=== PATIENT | female | born 1945 | race Caucasian/White ===

== ENCOUNTER → 2017-02-17 | Outpatient (CLI) | payer MEDICARE ==
[~2017-02-17] MED LIST: ENALAPRIL MALEA20 MG PO; HYDROCHLOROTHIA25 MG PO; METFORMIN500 MG PO; METOPROLOL50 MG PO; NIACIN500 MG PO; PRAVASTATIN SOD40 MG PO; VICODIN 5/500 505 MG PO; Vicodin 5/500 505 MG PO
== END | disposition home or self-care (01) ==
LOC: RAD 10:52
DX: M17.0 Bilateral primary osteoarthritis of knee (principal); M25.561 Pain in right knee

== ENCOUNTER 2017-03-16 09:30 | Inpatient (IN) | payer MEDICARE ==
[2017-03-16] VITALS (7 sets, daily range): BP systolic 136–170; BP diastolic 77–90
[~2017-03-16] VITALS: Ht 172.7 cm; Wt 83.2 kg
[2017-03-16 09:56] LABS: BASO % 0.1 % (0.0-1.0); EOS # 0.1 10*3/uL (0.0-0.4); EOS % 0.8 % (1.0-4.0); HEMATOCRIT 43.6 % (37.0-47.0); HEMOGLOBIN 14.7 g/dl (12.0-16.0); LYMPH # 1.5 10*3/uL (1.3-4.4); LYMPH % 16.6 % (27.0-41.0); MEAN CELL VOLUME 88.4 fl (81.0-99.0); MEAN CORPUSCULAR HGB 29.8 pg (27.0-31.0); MEAN CORPUSCULAR HGB CONC 33.7 g/dl (33.0-37.0); MEAN PLATELET VOLUME 10.6 fl (9.6-12.3); MONO # 0.7 10*3/uL (0.1-1.0); MONO % 8.1 % (3.0-9.0); NEUT # 6.7 10*3/uL (2.3-7.9); NEUT % 74.2 % (47.0-73.0); PLATELET COUNT AUTOMATED 282 10*3/uL (130-400); RED BLOOD COUNT 4.93 10*6/uL (4.10-5.10)
[2017-03-16 10:12] LABS: PROTHROMBIN TIME 10.4 SECONDS (9.0-12.4)
[2017-03-16 10:12] LABS: ALBUMIN 4.1 gm/dl (3.1-4.5); ALKALINE PHOSPHATASE 83 U/L (45-117); BILIRUBIN, TOTAL 0.9 mg/dl (0.2-1.0); BUN 25 mg/dl (7-24); CARBON DIOXIDE 28 mmol/L (21-32); CHLORIDE 101 mmol/L (98-107); CPK 136 U/L (26-192); EST GLOM FILT AFRICAN AMERICAN > 60 ml/min; GLUCOSE 174 mg/dL (65-99); MAGNESIUM 1.3 mg/dL (1.5-2.1); POTASSIUM 3.3 mmol/L (3.5-5.1); SGOT/AST 22 IU/L (3-35); SGPT/ALT 24 U/L (12-78); SODIUM 142 mmol/L (136-145); TOTAL PROTEIN 7.5 gm/dL (6.4-8.2)
[2017-03-16 10:14] LABS: CKMB 4.1 ng/ml (0.5-3.6); TROPONIN I 0.026 ng/ml (<0.045)
[2017-03-16] MEDS ORDERED: METFORMIN HCL1000 MG PO (16:41)
[2017-03-16] MEDS ORDERED: CYCLOBENZAPRINE10 MG PO (16:41)
[2017-03-16] MEDS ORDERED: LISINOPRIL20 MG PO (16:41)
[2017-03-16] MEDS ORDERED: SIMVASTATIN20 MG PO (16:42)
[2017-03-16 20:41] LABS: BILIRUBIN NEGATIVE (NEGATIVE); BLOOD NEGATIVE (NEGATIVE); CLARITY SL CLOUDY (CLEAR); COLOR YELLOW (YELLOW); GLUCOSE NEGATIVE (NEGATIVE); KETONE NEGATIVE (NEGATIVE); LEUKO ESTERASE 1+ (NEGATIVE); NITRITE NEGATIVE (NEGATIVE); PROTEIN NEGATIVE (NEGATIVE); UROBILINOGEN 0.2 E.U./dl (0.2-1.0)
[2017-03-16 20:55] LABS: BACTERIA 3+; EPITHELIAL CELLS 20-25; URINE REFLEX COMMENT YES (NO)
[2017-03-17] VITALS: BP 150/80
[2017-03-17 06:49] LABS: BASO % 0.1 % (0.0-1.0); EOS % 0.2 % (1.0-4.0); HEMATOCRIT 41.2 % (37.0-47.0); HEMOGLOBIN 13.8 g/dl (12.0-16.0); LYMPH # 0.8 10*3/uL (1.3-4.4); MEAN CELL VOLUME 87.7 fl (81.0-99.0); MEAN CORPUSCULAR HGB 29.4 pg (27.0-31.0); MEAN CORPUSCULAR HGB CONC 33.5 g/dl (33.0-37.0); MONO # 0.8 10*3/uL (0.1-1.0); MONO % 8.6 % (3.0-9.0); NEUT # 7.3 10*3/uL (2.3-7.9); NEUT % 81.8 % (47.0-73.0); PLATELET COUNT AUTOMATED 230 10*3/uL (130-400); RED CELL DISTRI WIDTH 12.7 % (0-14.5)
[2017-03-17 07:27] LABS: BUN 17 mg/dl (7-24); CARBON DIOXIDE 27 mmol/L (21-32); CHLORIDE 103 mmol/L (98-107); EST GLOM FILT AFRICAN AMERICAN > 60 ml/min; GLUCOSE 186 mg/dL (65-99); MAGNESIUM 1.5 mg/dL (1.5-2.1); POTASSIUM 3.5 mmol/L (3.5-5.1); SODIUM 139 mmol/L (136-145)
[2017-03-17 07:37] LABS: FREE T4 1.42 ng/dl (0.76-1.46); THYROID STIM HORMONE (HS) 0.636 uIU/ml (0.358-4.75)
[2017-03-17 08:00] VITALS: BP 164/75
[2017-03-17 12:00] VITALS: BP 106/84
[2017-03-17 16:00] VITALS: BP 145/81
[2017-03-17 20:00] VITALS: BP 144/78
[2017-03-18 00:14] VITALS: BP 134/66
[2017-03-18 08:00] VITALS: BP 180/80
[2017-03-18 12:00] VITALS: BP 124/73
[2017-03-18 16:00] VITALS: BP 178/80
[2017-03-18 20:00] VITALS: BP 149/74
[2017-03-19 00:06] VITALS: BP 152/76
[2017-03-19 08:00] VITALS: BP 138/82
[2017-03-19 12:00] VITALS: BP 131/66
== END 2017-03-19 15:30 | disposition other institution (70) | DRG 689 ==
LOC: ED 09:30 → EDHOLD 11:05 → 5E 11:05
PROVIDERS: Internal Medicine Hospice and Palliative Medicine; Registered Nurse
DX: N39.0 Urinary tract infection, site not specified (principal); N17.0 Acute kidney failure with tubular necrosis; E83.42 Hypomagnesemia; E11.65 Type 2 diabetes mellitus with hyperglycemia; I31.3 Pericardial effusion (noninflammatory); R55 Syncope and collapse; E87.6 Hypokalemia; I25.10 Atherosclerotic heart disease of native coronary artery without angina pectoris; E78.00 Pure hypercholesterolemia, unspecified; I10 Essential (primary) hypertension; M17.0 Bilateral primary osteoarthritis of knee; I25.2 Old myocardial infarction; Z87.891 Personal history of nicotine dependence; Z82.49 Family history of ischemic heart disease and other diseases of the circulatory system; Z79.84 Long term (current) use of oral hypoglycemic drugs; Z79.899 Other long term (current) drug therapy; W19.XXXA Unspecified fall, initial encounter

== ENCOUNTER 2017-05-29 19:06 | Emergency (ER) | payer MEDICARE ==
[~2017-05-29] VITALS: Ht 170.1 cm; Wt 90.7 kg
[~2017-05-29 19:06] MED LIST changes: +CYCLOBENZAPRINE10 MG PO; +LISINOPRIL20 MG PO; +METFORMIN HCL1000 MG PO; +SIMVASTATIN20 MG PO
[2017-05-29 19:17] VITALS: BP 155/84
[2017-05-29] MEDS ORDERED: ASPIRIN ADULT L81 M1 PO (19:18)
[2017-05-29] MEDS ORDERED: CALCIUM + D3 E1 EACH PO (19:19)
[2017-05-29] MEDS ORDERED: VITAMIN D50000 I3 PO (19:19)
[2017-05-29] MEDS ORDERED: VIBRAMYCIN100 MG PO (19:35)
== END 2017-05-29 19:45 | disposition home or self-care (01) ==
LOC: ED 19:06
DX: S40.812A Abrasion of left upper arm, initial encounter (principal); Z87.891 Personal history of nicotine dependence; Z95.5 Presence of coronary angioplasty implant and graft; Z79.899 Other long term (current) drug therapy; Z29.12 Encounter for prophylactic antivenin; W55.03XA Scratched by cat, initial encounter; Y93.89 Activity, other specified; Y92.9 Unspecified place or not applicable; Y99.9 Unspecified external cause status

== ENCOUNTER → 2017-09-08 | Outpatient (CLI) | payer MEDICARE ==
[~2017-09-08] MED LIST changes: +ASPIRIN ADULT L81 M1 PO; +CALCIUM + D3 E1 EACH PO; +VIBRAMYCIN100 MG PO; +VITAMIN D50000 I3 PO
[2017-09-08 12:30] LABS: BASO % 0.3 % (0.0-1.0); EOS # 0.1 10*3/uL (0.0-0.4); EOS % 0.8 % (1.0-4.0); HEMOGLOBIN 14.7 g/dl (12.0-16.0); LYMPH # 2.1 10*3/uL (1.3-4.4); LYMPH % 26.5 % (27.0-41.0); MEAN CELL VOLUME 89.2 fl (81.0-99.0); MEAN CORPUSCULAR HGB 29.8 pg (27.0-31.0); MEAN CORPUSCULAR HGB CONC 33.4 g/dl (33.0-37.0); MEAN PLATELET VOLUME 10.5 fl (9.6-12.3); MONO # 0.4 10*3/uL (0.1-1.0); MONO % 5.6 % (3.0-9.0); NEUT # 5.2 10*3/uL (2.3-7.9); NEUT % 66.4 % (47.0-73.0); PLATELET COUNT AUTOMATED 247 10*3/uL (130-400); RED BLOOD COUNT 4.93 10*6/uL (4.10-5.10); RED CELL DISTRI WIDTH 12.9 % (0-14.5); WHITE BLOOD COUNT 7.8 10*3/uL (4.8-10.8)
[2017-09-08 13:05] LABS: ALBUMIN 3.9 gm/dl (3.1-4.5); ALKALINE PHOSPHATASE 74 U/L (45-117); BUN 16 mg/dl (7-24); CHLORIDE 105 mmol/L (98-107); CREATININE 0.94 mg/dL (0.55-1.02); SGOT/AST 14 IU/L (3-35); SGPT/ALT 20 U/L (12-78); SODIUM 140 mmol/L (136-145); TOTAL PROTEIN 7.4 gm/dL (6.4-8.2)
[2017-09-08 15:55] LABS: BILIRUBIN 1+ (NEGATIVE); BLOOD NEGATIVE (NEGATIVE); CLARITY CLEAR (CLEAR); COLOR YELLOW (YELLOW); GLUCOSE NEGATIVE (NEGATIVE); KETONE TRACE (NEGATIVE); LEUKO ESTERASE 2+ (NEGATIVE); NITRITE NEGATIVE (NEGATIVE); PH 5.5 (5.0-9.0); SPECIFIC GRAVITY >= 1.030 (1.005-1.030); UROBILINOGEN 0.2 E.U./dl (0.2-1.0)
[2017-09-08 16:28] LABS: BACTERIA 1+; FINE GRANULAR CAST 0-2; RBC 0-2 rbc/hpf (0-2)
== END | disposition home or self-care (01) ==
LOC: LAB 11:53
PROVIDERS: Orthopaedic Surgery
DX: Z01.818 Encounter for other preprocedural examination (principal); M19.90 Unspecified osteoarthritis, unspecified site; E11.9 Type 2 diabetes mellitus without complications; I10 Essential (primary) hypertension; R35.0 Frequency of micturition; R53.83 Other fatigue; J44.9 Chronic obstructive pulmonary disease, unspecified; I51.7 Cardiomegaly; R94.31 Abnormal electrocardiogram [ECG] [EKG]; M79.609 Pain in unspecified limb; Z87.891 Personal history of nicotine dependence

== ENCOUNTER → 2018-01-31 | Outpatient (CLI) | payer MEDICARE ==
[2018-02-01 09:05] LABS: IMMUNOGLOBULIN G, QNT 786 mg/dL (700-1600); IMMUNOGLOBULIN M, QNT 55 mg/dL (26-217)
[2018-02-01 16:05] LABS: IMMUNOFIXATION RESULT, SERUM Comment: (.)
== END | disposition home or self-care (01) ==
LOC: LAB 10:19
PROVIDERS: Psychiatry & Neurology Neurology
DX: R41.3 Other amnesia (principal)

== ENCOUNTER 2018-09-27 12:39 | Emergency (ER) | payer MEDICARE ==
[~2018-09-27] VITALS: Ht 170.1 cm; Wt 86.2 kg
[2018-09-27 12:40] VITALS: BP 130/76
== END 2018-09-27 14:52 | disposition home or self-care (01) ==
LOC: ED 12:39
DX: M79.671 Pain in right foot (principal); I25.10 Atherosclerotic heart disease of native coronary artery without angina pectoris; I10 Essential (primary) hypertension; I25.2 Old myocardial infarction; E78.00 Pure hypercholesterolemia, unspecified; E11.9 Type 2 diabetes mellitus without complications; Z79.84 Long term (current) use of oral hypoglycemic drugs; Z79.899 Other long term (current) drug therapy; Z79.82 Long term (current) use of aspirin; Z87.891 Personal history of nicotine dependence; W22.8XXA Striking against or struck by other objects, initial encounter; Y93.89 Activity, other specified; Y92.89 Other specified places as the place of occurrence of the external cause; Y99.8 Other external cause status

== ENCOUNTER 2019-06-30 15:15 | Inpatient (IN) | payer OTHER, MEDICAID ==
[~2019-06-30] VITALS: Ht 172.7 cm; Wt 77.1 kg
--- NOTE | ~2019-06-30 | EKG ---
[place], [place] ELECTROCARDIOGRAM REPORT NAME: DILCIA ARREGUIN UNIT #: [id number] ROOM: 526 DOCTOR: FOX DRAFT REPORT BIRTHDATE: [birth year] [facility] Test Date: 2019-06-30 Test Time: 15:32:23 Pat Name: DILCIA ARREGUIN Department: Room: 526 Gender: F Surveyor: : 1945 Requested By: KRISTIN WALLS Order Number: [id number] Reading MD: Za Chin MD Measurements Intervals [place] Rate: 79 P: 39 TX: 135 QRS: 30 QRSD: 99 T: -5 QT: 413 QTc: 474 Interpretive Statements Sinus rhythm Probable left atrial enlargement Left ventricular hypertrophy Probable inferior infarct, age indeterminate Electronically Signed On 07-02-2019 6:49:45 PDT by Za Chin MD CM:EKGRPT:ELECTROCARDIOGRAM REPORT [id number] KRISTIN MANNING DRAFT REPORT KRISTIN WALLS DO
[2019-06-30 15:16] VITALS: BP 146/83
[2019-06-30 15:58] LABS: BASO % 0.3 % (0.0-1.0); EOS % 0.4 % (1.0-4.0); HEMATOCRIT 46.3 % (37.0-47.0); HEMOGLOBIN 15.1 g/dl (12.0-16.0); LYMPH # 1.9 10*3/uL (1.3-4.4); LYMPH % 25.9 % (27.0-41.0); MEAN CELL VOLUME 91.9 fl (81.0-99.0); MEAN CORPUSCULAR HGB CONC 32.6 g/dl (33.0-37.0); MEAN PLATELET VOLUME 10.8 fl (9.6-12.3); MONO # 0.5 10*3/uL (0.1-1.0); MONO % 7.3 % (3.0-9.0); NEUT # 4.8 10*3/uL (2.3-7.9); NEUT % 65.8 % (47.0-73.0); PLATELET COUNT AUTOMATED 233 10*3/uL (130-400); RED BLOOD COUNT 5.04 10*6/uL (4.10-5.10); WHITE BLOOD COUNT 7.3 10*3/uL (4.8-10.8)
[2019-06-30 16:15] LABS: ALBUMIN 3.9 gm/dl (3.1-4.5); ALKALINE PHOSPHATASE 66 U/L (45-117); BUN 21 mg/dl (7-24); CHLORIDE 106 mmol/L (98-107); CREATININE 1.09 mg/dL (0.55-1.02); LIPASE 90 U/L (73-393); POTASSIUM 3.7 mmol/L (3.5-5.1); SGOT/AST 14 IU/L (3-35); SGPT/ALT 17 U/L (12-78); SODIUM 138 mmol/L (136-145); TOTAL PROTEIN 7.4 gm/dL (6.4-8.2)
[2019-06-30 16:17] LABS: TROPONIN I < 0.015 ng/ml (<0.045)
[2019-06-30 16:19] LABS: ACT PARTIAL THROMBO TIME 24.5 SECONDS (20.0-32.1); INTERNATIONAL NORM RATIO 0.9 (2.0-3.5)
[2019-06-30 16:38] VITALS: BP 141/72
[2019-06-30 17:00] LABS: BILIRUBIN 2+ (NEGATIVE); BLOOD NEGATIVE (NEGATIVE); CLARITY SL CLOUDY (CLEAR); COLOR YELLOW (YELLOW); GLUCOSE NEGATIVE (NEGATIVE); KETONE NEGATIVE (NEGATIVE); LEUKO ESTERASE TRACE (NEGATIVE); NITRITE NEGATIVE (NEGATIVE); PH 5.5 (5.0-9.0); SPECIFIC GRAVITY >= 1.030 (1.005-1.030); UROBILINOGEN 0.2 E.U./dl (0.2-1.0)
[2019-06-30 17:10] LABS: BACTERIA 2+; EPITHELIAL CELLS 16-20; MUCOUS 4+
[2019-06-30 18:25] VITALS: BP 138/71
[2019-06-30 18:37] VITALS: BP 166/86
--- NOTE | 2019-06-30 18:37 | NUR ---
Time: 1836 A 74 year old FEMALE admitted to 5E under services of JEANINE GALARZA DO. Pt. arrived via stretcher from ER. Chief complaint: CONFUSION. SABINO CABRERA
[2019-06-30 20:00] VITALS: BP 166/86
--- NOTE | 2019-06-30 23:50 | NUR ---
PT OBSERVED RESTLESS AND REPORTS DIFFICULTY FALLIING ASLEEP. RESTORIL GIVEN.SEE EMAR
[2019-07-01] VITALS: BP 178/124
--- NOTE | 2019-07-01 01:00 | NUR ---
RESTORIL INEFFECTIVE. PT OBSERVED TO SLEEP IN BREIF INTERVALS.
[2019-07-01 01:33] VITALS: BP 146/72
--- NOTE | 2019-07-01 04:10 | NUR ---
24 HR chart check completed.
[2019-07-01 06:15] LABS: BASO % 0.3 % (0.0-1.0); EOS # 0.1 10*3/uL (0.0-0.4); EOS % 0.9 % (1.0-4.0); HEMATOCRIT 42.1 % (37.0-47.0); HEMOGLOBIN 13.6 g/dl (12.0-16.0); LYMPH # 2.2 10*3/uL (1.3-4.4); LYMPH % 33.9 % (27.0-41.0); MEAN CELL VOLUME 91.9 fl (81.0-99.0); MEAN CORPUSCULAR HGB 29.7 pg (27.0-31.0); MEAN CORPUSCULAR HGB CONC 32.3 g/dl (33.0-37.0); MEAN PLATELET VOLUME 10.6 fl (9.6-12.3); MONO # 0.5 10*3/uL (0.1-1.0); MONO % 8.3 % (3.0-9.0); NEUT # 3.6 10*3/uL (2.3-7.9); NEUT % 56.4 % (47.0-73.0); PLATELET COUNT AUTOMATED 194 10*3/uL (130-400); RED BLOOD COUNT 4.58 10*6/uL (4.10-5.10); RED CELL DISTRI WIDTH 12.7 % (0-14.5); WHITE BLOOD COUNT 6.4 10*3/uL (4.8-10.8)
[2019-07-01 06:29] LABS: BUN 23 mg/dl (7-24); CHLORIDE 108 mmol/L (98-107); CREATININE 0.91 mg/dL (0.55-1.02); POTASSIUM 3.4 mmol/L (3.5-5.1); SODIUM 140 mmol/L (136-145)
[2019-07-01 12:00] VITALS: BP 163/79
--- NOTE | 2019-07-01 14:00 | NUR ---
DR. BATISTA AWARE THAT PATIENTS HOME MEDICATIONS WERE RECONCILED FROM PATIENT CLAIM HISTORY AND NEEDED ORDERED.
[2019-07-01 16:00] VITALS: BP 155/73
[2019-07-01 20:00] VITALS: BP 162/84
--- NOTE | 2019-07-01 23:44 | NUR ---
NOTIFIED OF BP 188/74. SAID SHE WOULD ORDER SOMETHING.
[2019-07-02] VITALS: BP 188/74
--- NOTE | 2019-07-02 01:06 | NUR ---
BP 162/82 FOLLOWING APRESOLINE.
[2019-07-02 01:07] VITALS: BP 162/82
[2019-07-02 06:36] LABS: BASO % 0.3 % (0.0-1.0); EOS # 0.1 10*3/uL (0.0-0.4); EOS % 0.8 % (1.0-4.0); HEMATOCRIT 42.5 % (37.0-47.0); HEMOGLOBIN 14.1 g/dl (12.0-16.0); LYMPH # 1.8 10*3/uL (1.3-4.4); LYMPH % 29.5 % (27.0-41.0); MEAN CELL VOLUME 91.6 fl (81.0-99.0); MEAN CORPUSCULAR HGB 30.4 pg (27.0-31.0); MEAN CORPUSCULAR HGB CONC 33.2 g/dl (33.0-37.0); MEAN PLATELET VOLUME 11.1 fl (9.6-12.3); MONO # 0.5 10*3/uL (0.1-1.0); NEUT # 3.7 10*3/uL (2.3-7.9); NEUT % 61.2 % (47.0-73.0); PLATELET COUNT AUTOMATED 196 10*3/uL (130-400); RED BLOOD COUNT 4.64 10*6/uL (4.10-5.10); RED CELL DISTRI WIDTH 13.1 % (0-14.5); WHITE BLOOD COUNT 6.1 10*3/uL (4.8-10.8)
[2019-07-02 06:42] LABS: BUN 18 mg/dl (7-24); CHLORIDE 113 mmol/L (98-107); CREATININE 0.85 mg/dL (0.55-1.02); POTASSIUM 3.6 mmol/L (3.5-5.1); SODIUM 145 mmol/L (136-145)
[2019-07-02 08:00] VITALS: BP 171/73
--- NOTE | 2019-07-02 09:59 | NUR ---
PT COMPLAIN OF LEFT WRIST PAIN, ICE BAG APPLIED, TYLENOL GIVEN
--- NOTE | 2019-07-02 10:52 | NUR ---
TYLENOL EFFECTIVE FOR PAIN
[2019-07-02 12:00] VITALS: BP 175/84
[2019-07-02] MEDS ORDERED: CIPRO500 MG PO (12:53)
--- NOTE | 2019-07-02 13:45 | NUR ---
Discharge instructions reviewed with patient/family. Patient receptive and verbalizes understanding. Follow-up care understood. Written instructions given to patient/family. 2 ivs removed, dressing applied. pt understands new rx to clam picker at pharmacy and has no questions on discharge. JESSICA ROSE
== END 2019-07-02 13:45 | disposition home or self-care (01) | DRG 689 ==
LOC: ED 15:15 → EDHOLD 18:01 → 5E 18:12
PROVIDERS: Emergency Medicine; Internal Medicine; ADMIT Internal Medicine
DX: N39.0 Urinary tract infection, site not specified (principal); G93.41 Metabolic encephalopathy; I10 Essential (primary) hypertension; G93.89 Other specified disorders of brain; I25.10 Atherosclerotic heart disease of native coronary artery without angina pectoris; E11.65 Type 2 diabetes mellitus with hyperglycemia; M19.032 Primary osteoarthritis, left wrist; I25.2 Old myocardial infarction; Z87.891 Personal history of nicotine dependence; Z82.49 Family history of ischemic heart disease and other diseases of the circulatory system; Z79.899 Other long term (current) drug therapy

== ENCOUNTER → 2021-01-03 | Outpatient (CLI) | payer OTHER, MEDICAID ==
[~2021-01-03] MED LIST changes: +CIPRO500 MG PO
[2021-01-03 09:59] LABS: BASO % 0.3 % (0.0-1.0); EOS # 0.1 10*3/uL (0.0-0.4); EOS % 0.9 % (1.0-4.0); HEMATOCRIT 45.7 % (37.0-47.0); LYMPH # 1.3 10*3/uL (1.3-4.4); LYMPH % 18.7 % (27.0-41.0); MEAN CELL VOLUME 94.2 fl (81.0-99.0); MEAN CORPUSCULAR HGB 29.5 pg (27.0-31.0); MEAN CORPUSCULAR HGB CONC 31.3 g/dl (33.0-37.0); MEAN PLATELET VOLUME 10.3 fl (9.6-12.3); MONO # 0.4 10*3/uL (0.1-1.0); MONO % 6.4 % (3.0-9.0); NEUT # 5.1 10*3/uL (2.3-7.9); NEUT % 73.4 % (47.0-73.0); PLATELET COUNT AUTOMATED 235 10*3/uL (130-400); RED BLOOD COUNT 4.85 10*6/uL (4.10-5.10); RED CELL DISTRI WIDTH 13.2 % (0-14.5); WHITE BLOOD COUNT 6.9 10*3/uL (4.8-10.8)
[2021-01-03 10:15] LABS: BILIRUBIN Negative (Negative); BLOOD Negative (Negative); CLARITY Cloudy (Clear); COLOR Yellow (Yellow); GLUCOSE Negative (Negative); KETONE Negative (Negative); LEUKO ESTERASE 2+ (Negative); NITRITE Positive (Negative); SPECIFIC GRAVITY 1.015 (1.001-1.030); UROBILINOGEN 0.2 E.U./dl (0.0-1.0)
[2021-01-03 10:25] LABS: BACTERIA 3+; WBC TNTC wbc/hpf (0-5)
[2021-01-03 10:36] LABS: ALBUMIN 3.4 gm/dl (3.1-4.5); CREATININE 1.12 mg/dL (0.55-1.02); POTASSIUM 4.3 mmol/L (3.5-5.1)
[2021-01-03 10:37] LABS: TOTAL PROTEIN 6.8 gm/dL (6.4-8.2)
== END | disposition home or self-care (01) ==
LOC: MRI 12-30 08:00
PROVIDERS: ATTEND Family Medicine
DX: E53.8 Deficiency of other specified B group vitamins (principal); R30.0 Dysuria; R41.89 Other symptoms and signs involving cognitive functions and awareness

== ENCOUNTER 2021-07-19 19:59 | Emergency (ER) | payer OTHER, MEDICAID ==
[~2021-07-19] VITALS: Ht 175.2 cm; Wt 82.6 kg
[2021-07-19 23:03] LABS: BASO % 0.4 % (0.0-1.0); EOS % 0.4 % (1.0-4.0); HEMATOCRIT 43.4 % (37.0-47.0); LYMPH % 19.5 % (27.0-41.0); MEAN CELL VOLUME 89.5 fl (81.0-99.0); MEAN CORPUSCULAR HGB 29.5 pg (27.0-31.0); MEAN CORPUSCULAR HGB CONC 32.9 g/dl (33.0-37.0); MEAN PLATELET VOLUME 10.6 fl (9.6-12.3); MONO # 0.8 10*3/uL (0.1-1.0); MONO % 7.6 % (3.0-9.0); NEUT # 7.2 10*3/uL (2.3-7.9); NEUT % 71.7 % (47.0-73.0); PLATELET COUNT AUTOMATED 247 10*3/uL (130-400); RED BLOOD COUNT 4.85 10*6/uL (4.10-5.10); RED CELL DISTRI WIDTH 13.2 % (0-14.5); WHITE BLOOD COUNT 10.1 10*3/uL (4.8-10.8)
[2021-07-19 23:22] LABS: BUN 18 mg/dl (7-24); CHLORIDE 105 mmol/L (98-107); CREATININE 0.97 mg/dL (0.55-1.02); SGOT/AST 14 IU/L (3-35); SGPT/ALT 23 U/L (12-78); SODIUM 139 mmol/L (136-145); TOTAL PROTEIN 7.5 gm/dL (6.4-8.2)
[2021-07-19 23:24] LABS: ALKALINE PHOSPHATASE 113 U/L (45-117)
[2021-07-19 23:26] LABS: URIC ACID 5.6 mg/dL (2.6-6.0)
[2021-07-20 08:46] LABS: BILIRUBIN Negative (Negative); BLOOD Negative (Negative); CLARITY Clear (Clear); COLOR Yellow (Yellow); GLUCOSE Negative (Negative); KETONE Negative (Negative); LEUKO ESTERASE Negative (Negative); NITRITE Negative (Negative); PH 5.5 (4.5-8.0); SPECIFIC GRAVITY 1.015 (1.001-1.030)
[2021-07-20 08:57] LABS: BACTERIA 1+; MUCOUS 1+; RBC 0-2 rbc/hpf (0-2)
[2021-07-20] MEDS ORDERED: MEMANTINE HCL5 MG PO (17:05)
[2021-07-20 20:29] VITALS: BP 152/80
== END 2021-07-20 20:30 | disposition short-term general hospital (02) ==
LOC: ED 19:59
PROVIDERS: Emergency Medicine
DX: M31.6 Other giant cell arteritis (principal); I25.10 Atherosclerotic heart disease of native coronary artery without angina pectoris; I10 Essential (primary) hypertension; E11.9 Type 2 diabetes mellitus without complications; Z79.899 Other long term (current) drug therapy; Z87.891 Personal history of nicotine dependence

== ENCOUNTER 2021-09-23 12:22 | Emergency (ER) | payer OTHER, MEDICAID ==
[~2021-09-23] VITALS: Ht 170.1 cm; Wt 74.8 kg
[~2021-09-23 12:22] MED LIST changes: +MEMANTINE HCL5 MG PO
[2021-09-23 12:57] LABS: BASO % 0.1 % (0.0-1.0); EOS # 0.1 10*3/uL (0.0-0.4); EOS % 0.9 % (1.0-4.0); HEMATOCRIT 39.4 % (37.0-47.0); LYMPH # 1.2 10*3/uL (1.3-4.4); LYMPH % 12.4 % (27.0-41.0); MEAN CELL VOLUME 91.4 fl (81.0-99.0); MEAN CORPUSCULAR HGB CONC 31.7 g/dl (33.0-37.0); MEAN PLATELET VOLUME 9.6 fl (9.6-12.3); MONO # 0.8 10*3/uL (0.1-1.0); MONO % 8.5 % (3.0-9.0); NEUT # 7.7 10*3/uL (2.3-7.9); NEUT % 77.7 % (47.0-73.0); PLATELET COUNT AUTOMATED 372 10*3/uL (130-400); RED BLOOD COUNT 4.31 10*6/uL (4.10-5.10); RED CELL DISTRI WIDTH 13.4 % (0-14.5); WHITE BLOOD COUNT 9.9 10*3/uL (4.8-10.8)
[2021-09-23 13:12] LABS: ALBUMIN 2.7 gm/dl (3.1-4.5); ALKALINE PHOSPHATASE 102 U/L (45-117); BUN 16 mg/dl (7-24); CHLORIDE 108 mmol/L (98-107); CREATININE 1.02 mg/dL (0.55-1.02); LIPASE 59 U/L (73-393); POTASSIUM 4.4 mmol/L (3.5-5.1); SGOT/AST 19 IU/L (3-35); SGPT/ALT 22 U/L (12-78); SODIUM 140 mmol/L (136-145)
[2021-09-23 15:27] LABS: BILIRUBIN Negative (Negative); BLOOD Trace-Lysed (Negative); CLARITY Cloudy (Clear); COLOR Yellow (Yellow); GLUCOSE Negative (Negative); KETONE Trace (Negative); LEUKO ESTERASE 3+ (Negative); NITRITE Positive (Negative); PH 5.5 (4.5-8.0)
[2021-09-23 15:40] LABS: BACTERIA 4+; WBC TNTC wbc/hpf (0-5)
[2021-09-23] MEDS ORDERED: SEPTDS PO (16:57)
[2021-09-23 17:00] VITALS: BP 148/87
== END 2021-09-23 17:25 | disposition home or self-care (01) ==
LOC: ED 12:22
PROVIDERS: Physician Assistant
DX: N39.0 Urinary tract infection, site not specified (principal); Z79.899 Other long term (current) drug therapy; Z87.891 Personal history of nicotine dependence

== ENCOUNTER 2021-10-08 17:14 | Emergency (ER) | payer OTHER, MEDICAID ==
[~2021-10-08] VITALS: Ht 170.1 cm; Wt 90.7 kg
[~2021-10-08 17:14] MED LIST changes: +SEPTDS PO
[2021-10-08 17:21] VITALS: BP 141/81
[2021-10-08 20:29] LABS: BASO % 0.2 % (0.0-1.0); EOS # 0.1 10*3/uL (0.0-0.4); EOS % 0.8 % (1.0-4.0); HEMATOCRIT 39.3 % (37.0-47.0); LYMPH # 1.7 10*3/uL (1.3-4.4); LYMPH % 18.9 % (27.0-41.0); MEAN CELL VOLUME 88.7 fl (81.0-99.0); MEAN CORPUSCULAR HGB 28.4 pg (27.0-31.0); MEAN CORPUSCULAR HGB CONC 32.1 g/dl (33.0-37.0); MONO # 0.8 10*3/uL (0.1-1.0); MONO % 8.9 % (3.0-9.0); NEUT # 6.2 10*3/uL (2.3-7.9); NEUT % 70.9 % (47.0-73.0); PLATELET COUNT AUTOMATED 291 10*3/uL (130-400); RED BLOOD COUNT 4.43 10*6/uL (4.10-5.10); RED CELL DISTRI WIDTH 13.7 % (0-14.5); WHITE BLOOD COUNT 8.8 10*3/uL (4.8-10.8)
[2021-10-08 20:44] LABS: ALKALINE PHOSPHATASE 88 U/L (45-117); BUN 14 mg/dl (7-24); CHLORIDE 104 mmol/L (98-107); CREATININE 0.92 mg/dL (0.55-1.02); POTASSIUM 3.4 mmol/L (3.5-5.1); SGOT/AST 12 IU/L (3-35); SGPT/ALT 19 U/L (12-78); SODIUM 138 mmol/L (136-145); TOTAL PROTEIN 7.6 gm/dL (6.4-8.2)
[2021-10-08 21:41] LABS: BILIRUBIN Negative (Negative); BLOOD Negative (Negative); CLARITY Cloudy (Clear); COLOR Dark Yellow (Yellow); GLUCOSE Negative (Negative); KETONE Trace (Negative); LEUKO ESTERASE Trace (Negative); NITRITE Negative (Negative); SPECIFIC GRAVITY >= 1.030 (1.001-1.030)
[2021-10-08 22:04] LABS: BACTERIA 4+; EPITHELIAL CELLS TNTC; WBC 16-20 wbc/hpf (0-5)
[2021-10-08] MEDS ORDERED: MEDROL DOSEPAK4 MG PO (22:17)
[2021-10-08] MEDS ORDERED: HYDROCODONE-AC1 EAC1 PO (22:20)
== END 2021-10-08 22:31 | disposition home or self-care (01) ==
LOC: ED 17:14
PROVIDERS: Physician Assistant
DX: M54.6 Pain in thoracic spine (principal); M54.50 Low back pain, unspecified; Z79.899 Other long term (current) drug therapy; Z87.891 Personal history of nicotine dependence